=== PATIENT | female | born 1955 | race African-American/Black ===

== ENCOUNTER 2017-10-04 09:16 | Emergency (ER) | payer MEDICARE, MEDICAID ==
[~2017-10-04] VITALS: Ht 172.7 cm; Wt 74.0 kg
[~2017-10-04 09:16] MED LIST: B50; CARI350T; CARI350T27 PO; CLON1TAB4 PO; GABA-290 PO; GABA-531 PO; GLUCO8 PO; GLYB5TAB4; HYDR1TAB4; LISI-652; METF500T; TRAZ-132 PO
[2017-10-04] MEDS ORDERED: MORPHINE SULFATE 10 MG/ML CPJ IM ONE (18:45)
[2017-10-04] MEDS ORDERED: ONDANSETRON 4MG ODT PO ONE (18:45)
[2017-10-04] MEDS ORDERED: HYDROCODONE/ACETAMINOPHEN 5/325MG TABLET PO ONE (22:45)
[2017-10-04 23:40] VITALS: BP 115/65
== END 2017-10-04 23:50 | disposition home or self-care (01) ==
LOC: ER 09:25
DX: M25.561 Pain in right knee (principal); G89.29 Other chronic pain; E11.9 Type 2 diabetes mellitus without complications; E05.90 Thyrotoxicosis, unspecified without thyrotoxic crisis or storm; I10 Essential (primary) hypertension; F17.200 Nicotine dependence, unspecified, uncomplicated; M19.90 Unspecified osteoarthritis, unspecified site; Z79.899 Other long term (current) drug therapy
CPT/HCPCS: 73562; 82962; 96372; 99284; J2270; Q0162; 99285